=== PATIENT | female | born 1975 | race Caucasian/White ===

== ENCOUNTER → 2016-08-10 | Outpatient (CLI) | payer BC | LOC: LAB 17:28 | DX: Z51.81 Encounter for therapeutic drug level monitoring (principal); Z79.899 Other long term (current) drug therapy | CPT/HCPCS: 80307 ==

== ENCOUNTER → 2016-09-18 | Outpatient (CLI) | payer BC | LOC: LAB 08:28 | DX: R68.89 Other general symptoms and signs (principal) | CPT/HCPCS: 36415; 82565; 84520 ==

== ENCOUNTER → 2016-09-19 | Outpatient (CLI) | payer BC | LOC: CT 08:00 | DX: R68.89 Other general symptoms and signs (principal); J39.2 Other diseases of pharynx | CPT/HCPCS: 70491; J7050; Q9962 ==